=== PATIENT | male | born 1970 | race Asian ===

== ENCOUNTER 2023-09-27 02:25 | Emergency (ER) | payer OTHER, SELFPAY ==
[2023-09-27 02:33] VITALS: BP 145/84
[2023-09-27 03:14] LABS: % Basophils 0.7 % (0-2); % Eosinophils 1.5 % (0-6); % Immature Granulocytes 0.4 % (0-0.5); % Lymphocytes 19.9 % (20.5-51.1); % Neutrophils 69.5 % (42.2-75.2); Absolute Basophils 0.1 10^3/uL (0-0.2); Absolute Eosinophils 0.2 10^3/uL (0-0.7); Absolute Immature Granulocytes 0.1 10^3/uL (0-0.05); Absolute Lymphocytes 2.4 10^3/uL (1.2-3.4); Absolute Monocytes 0.9 10^3/uL (0.1-0.6); Absolute Neutrophils 8.2 10^3/uL (1.4-6.5); Hematocrit 38.4 % (39.0-52.0); Hemoglobin 13.6 g/dL (13.0-18.0); Mean Corp Hgb Conc. 35.4 g/dL (33.0-37.0); Mean Corpuscular Hgb 31.1 pg (27.0-31.0); Mean Corpuscular Volume 87.9 fL (80.0-94.0); Mean Platelet Volume 10.2 fL (7.4-10.4); Nucleated Red Blood Cells % 0 % (-); Platelet Count 249 10^3/uL (130-400); Red Blood Cell Count 4.37 10^6/uL (4.70-6.10); Red Cell Dist. Width 12.9 % (11.5-14.5); White Blood Cell Count 11.8 10^3/uL (4.8-10.8)
[2023-09-27 03:35] LABS: ALT (SGPT) 26 U/L (0-50); AST (SGOT) 35 U/L (17-59); Albumin 4.5 g/dl (3.5-5.0); Alcohol None Detected; Alkaline Phosphatase 113 U/L (38-126); Blood Urea Nitrogen 11 mg/dl (9-20); Calcium 9.5 mg/dl (8.4-10.2); Carbon Dioxide 18 mmol/L (22-30); Chloride 100 mmol/L (98-107); Estimated Creatinine Clearance > 125 ml/min; Glucose 218 mg/dl (70-99); Potassium 4.1 mmol/L (3.5-5.1); Sodium 130 mmol/L (135-145); Total Bilirubin 0.9 mg/dl (0.2-1.3); Total Protein 7.6 g/dl (6.3-8.2); eGFR > 60.00
[2023-09-27 05:11] LABS: Amphetamines Negative (Negative); Barbiturates Negative (Negative); Benzodiazepines Negative (Negative); Buprenorphine Negative (Negative); Cocaine Negative (Negative); Marijuana Negative (Negative); Methadone Negative (Negative); Methamphetamines Negative (Negative); Opiates Negative (Negative); Phencyclidine Negative (Negative); Tricyclic Antidepressants Negative (Negative)
--- NOTE | 2023-09-27 05:44 | ED.GENMED ---
History of Present Illness
General
Chief Complaint: Crisis Evaluation
Time Seen by Provider: 09/27/23 02:35
Travel History
Have you had any contact with someone who has COVID-19?: No
Do you have any symptoms of coronavirus? Fever > 100 degrees, chills, cough, shortness of breath, sore throat, loss of taste or smell, muscle aches, or headache?: No
Past History
Past History
ED Past Medical History: HTN, Hypercholesterolemia, NIDDM, Psychiatric (Anxiety, depression) and Other (Neuropathy)
ED Past Surgical History: None
Social History
Tobacco: Smoker
Alcohol: Daily (Vodka 1 bottle)
Personal:
Living: alone
Course
Orders/Labs/Results
Orders:
Orders
09/27/23 02:37
Electrocardiogram (*1) Urgent
Reason for Study: Palpitations
EKG- Treatment ONCE
09/27/23 02:45
Alcohol Urgent
Complete Blood Count/With Diff Urgent
Comprehensive Metabolic Panel Urgent
09/27/23 03:55
Crisis Consult Urgent
Reason for Consult: Agitation, depression
09/27/23 04:23
Restraints - Violent As Directed
Restraint Type-: Locked-4 point/4 rails
Apply From (date): 09/27/23
Apply from (time): 02:25
Remove (date): 09/27/23
Remove (time): 06:25
09/27/23 04:52
Urine Drug Abuse Screen Urgent
Date Specimen was Collected: 09/27/23
Time Specimen was Collected: 04:51
Abnormal Lab Results
09/27/23
02:45
WBC 11.8 H 10^3/uL
(4.8-10.8)
RBC 4.37 L 10^6/uL
(4.70-6.10)
Hct 38.4 L %
(39.0-52.0)
MCH 31.1 H pg
(27.0-31.0)
Abs Immat Gran (auto) 0.1 H 10^3/uL
(0-0.05)
Absolute Neuts (auto) 8.2 H 10^3/uL
(1.4-6.5)
Absolute Monos (auto) 0.9 H 10^3/uL
(0.1-0.6)
Lymphocytes % 19.9 L %
(20.5-51.1)
Sodium 130 L mmol/L
(135-145)
Carbon Dioxide 18 L mmol/L
(22-30)
Glucose 218 H mg/dl
(70-99)
09/27/23 02:45
09/27/23 02:45
Vital Signs
Initial and Last Documented VS:
Initial Vital Signs
Temp Pulse Resp BP Pulse Ox
97.6 F 117 24 145/84 99
09/27/23 02:33 09/27/23 02:33 09/27/23 02:33 09/27/23 02:33 09/27/23 02:33
Last Documented Vital Signs
Temp Pulse Resp BP Pulse Ox
97.6 F 117 24 145/84 99
09/27/23 02:33 09/27/23 02:33 09/27/23 02:33 09/27/23 02:33 09/27/23 02:33
ED Attending Note
-
Portions of this chart may have been created with voice recognition software.� Occasional wrong word or��sound alike� substitutions may have occurred due to the inherent limitations of voice recognition software.
Discharge Plan
Departure
Referrals:
UNKNOWN - PT DOES,NOT KNOW [Family Provider] -
Interventions
Interventions:
*Risk Screen - Suicide Last Done: 09/27/23 02:33
*General Assessment Last Done: 09/27/23 02:33
*Neglect/Abuse Screening Last Done: 09/27/23 02:33
*ED COVID-19 Vaccine History Last Done: 09/27/23 06:28
--- NOTE | 2023-09-27 06:36 | ED.GENMED ---
History of Present Illness
General
Chief Complaint: Crisis Evaluation
Source: patient and police
Exam Limitations: clinical condition (Patient is quite agitated, anxious, exhibiting pressured speech with flight of ideas)
Time Seen by Provider: 09/27/23 02:30
Nursing documentation reviewed up to this point in time: agreed with
Travel History
Have you had any contact with someone who has COVID-19?: No
Do you have any symptoms of coronavirus? Fever > 100 degrees, chills, cough, shortness of breath, sore throat, loss of taste or smell, muscle aches, or headache?: No
History of Present Illness
History of Present Illness:
This is a 53-year-old gentleman who has history of hypertension, hyperlipidemia, zgn-kswghac-sazlxirhj diabetes, anxiety/depression as well as prior history of alcohol abuse. He is , currently resides locally, renting a room.
He admits to significant, chronic financial burdens, unable to afford his medications. He admits to loneliness, voicing sadness that his daughter refuses to speak to him.
He denies recent alcohol use, adamantly denies drug use.
He is brought to the ED by police after being found at a local convenience store, quite agitated, anxious and questionably attempting to walk out of the store with food and snacks without purchasing.
Patient states he has lost his will to live and was on his way to the hospital when he stopped at a convenience store.
He is quite anxious, agitated exhibiting pressured speech with tangential and scattered thought processes.
Initially refusing to enter the ED but then agreeable to do so but noted to have periods of explosiveness and aggression requiring additional 4 point leather restraints for staff and patient's safety.
With repeated verbal cueing he is able to be calmed and somewhat able to focus but thoughts remained scattered and boisterous.
Patient is prescribed propranolol, naltrexone, metformin. It is unclear if he has been taking any of these medications.
He fears that he is going to but also voices wish.
Ultimately however he is agreeable to stay in the ED, requesting help.
Past History
Past History
ED Past Medical History: HTN, Hypercholesterolemia, NIDDM, Psychiatric (Anxiety, depression) and Other (Neuropathy)
ED Past Surgical History: None
Social History
Tobacco: Smoker
Alcohol: Occasional (Vodka 1 bottle)
Drug: None
Personal:
Living: alone
Employment: Employed
Family History
Family History: Other (Unable to obtain)
Phy Exam
Physical Exam
Physical Exam:
GENERAL: 53-year-old male appears somewhat older than stated age. He is awake and alert, quite anxious, agitated, boisterous. I question very mild odor of alcohol to the patient's breath.
EYE: pupils equal and reactive. anicteric. The head is normocephalic, atraumatic.
NECK: Supple, nontender, no meningismus, no significant adenopathy.
ENT: oral mucosa is moist. No rhinorrhea.
CARDIAC: Regular rate and rhythm. no murmur.
LUNGS: Clear breath sounds bilaterally, no acute respiratory distress, no wheezes/rales/rhonchi
ABDOMEN: Rotund, soft, nondistended, without focal tenderness, normoactive BS.
NEUROLOGICAL: Alert and oriented x3, no focal neuro deficits. Gait is steady.
SKIN: Warm and dry, normal color, skin intact. No rash.
MUSCULOSKELETAL: No C/C/E. peripheral pulses are full and equal b/l. No palpable tenderness.
PSYCH: Significantly anxious, agitated exhibiting pressured speech, tangential and scattered thought processes. Admits to significant ongoing financial stressors, loneliness and concerned that he is going to .
Course
Orders/Labs/Results
Orders:
Orders
09/27/23 02:37
Electrocardiogram (*1) Urgent
Reason for Study: Palpitations
EKG- Treatment ONCE
09/27/23 02:45
Alcohol Urgent
Complete Blood Count/With Diff Urgent
Comprehensive Metabolic Panel Urgent
09/27/23 03:55
Crisis Consult Urgent
Reason for Consult: Agitation, depression
09/27/23 04:23
Restraints - Violent As Directed
Restraint Type-: Locked-4 point/4 rails
Apply From (date): 09/27/23
Apply from (time): 02:25
Remove (date): 09/27/23
Remove (time): 06:25
09/27/23 04:52
Urine Drug Abuse Screen Urgent
Date Specimen was Collected: 09/27/23
Time Specimen was Collected: 04:51
09/27/23 07:37
Haloperidol Lactate [Haldol] 5 mg IM NOW STA
Lorazepam [Ativan] 1 mg IM NOW STA
Abnormal Lab Results
09/27/23
02:45
WBC 11.8 H 10^3/uL
(4.8-10.8)
RBC 4.37 L 10^6/uL
(4.70-6.10)
Hct 38.4 L %
(39.0-52.0)
MCH 31.1 H pg
(27.0-31.0)
Abs Immat Gran (auto) 0.1 H 10^3/uL
(0-0.05)
Absolute Neuts (auto) 8.2 H 10^3/uL
(1.4-6.5)
Absolute Monos (auto) 0.9 H 10^3/uL
(0.1-0.6)
Lymphocytes % 19.9 L %
(20.5-51.1)
Sodium 130 L mmol/L
(135-145)
Carbon Dioxide 18 L mmol/L
(22-30)
Glucose 218 H mg/dl
(70-99)
09/27/23 02:45
09/27/23 02:45
Vital Signs
Initial and Last Documented VS:
Initial Vital Signs
Temp Pulse Resp BP Pulse Ox
97.6 F 117 24 145/84 99
09/27/23 02:33 09/27/23 02:33 09/27/23 02:33 09/27/23 02:33 09/27/23 02:33
Last Documented Vital Signs
Temp Pulse Resp BP Pulse Ox
97.6 F 117 24 145/84 99
09/27/23 02:33 09/27/23 02:33 09/27/23 02:33 09/27/23 02:33 09/27/23 02:33
MDM/Problems Addressed
Differential Diagnosis Includes:
Patient presents via police due to acute agitation, intermittent aggressive/explosiveness.
Initially placed in 4-point restraints for patient and staff safety. With
With persistent verbal cueing patient is now calmed and has not required sedating medications.
Concern for acute intoxication, drug use, acute john.
Patient has history of hypertension, meb-yeqkklf-mdkpfuxde diabetes.
Admits that he has had difficulty obtaining medications. Concern for poorly controlled diabetes, poorly controlled hypertension.
Patient agreeable to laboratory studies, vital signs, EKG.
He is agreeable to crisis evaluation and if medically cleared agreeable to psychiatric hospitalization.
Police have filed a backup 302 if needed.
Chronic conditions affecting care: DM, HTN, Psychiatric illness and Other (Alcohol abuse)
*Pulse Oximetry
Patient hypoxic: no
*EKG
Interpreted by ED Provider?: Yes
Interpretation: normal
Comparison EKG: no comparison EKG present
Rate: normal
Rhythm: sinus
[place]ail: normal axis
Interval: normal interval
QRS Pattern: normal QRS
Ischemia: no ischemia
*Critical Care Note
Total Time (30-74mins, 75-104mins- exclusive of procedures): Not Applicable
Update Note
Update Note:
Restraints have been successfully removed.
Patient remains cooperative.
Vital signs are stable.
Labs show moderately elevated glucose of 218 without evidence of acidosis. Mild hyponatremia of 130.
Alcohol is negative, UDS is negative.
Patient remains agreeable to inpatient psychiatric treatment.
[facility] working on hospital acceptance and transfer.
09/27/2023 0738 AM
Patient has become aggressively more agitated, verbally threatening, pacing about exam room.
He continues to talk incessantly with pressured speech, flight of ideas.
He is threatening to leave the hospital, requesting to smoke a cigarette. I have attempted to appease him with a nicotine patch versus gum. Briefly excepted the gum but continues to attempt to leave exam room to smoke a cigarette, threatening to
juliet everyone.
Will medicate with IM Haldol and Ativan.
Patient is clearly a danger to himself.
302 filled out by police will be filed by [facility] and will consult psychiatrist for evaluation this a.m.
ED Attending Note
-
Portions of this chart may have been created with voice recognition software.� Occasional wrong word or��sound alike� substitutions may have occurred due to the inherent limitations of voice recognition software.
Discharge Plan
Departure
Patient Disposition: Psych Facility
Date of Disposition: 09/27/23
Time of Disposition: 07:25
Patient with high blood pressure during this ER visit?: No
Condition: Good
Discharge Problem:
Excited delirium, Acute john, Medical clearance for psychiatric admission
Referrals:
UNKNOWN - PT DOES,NOT KNOW [Family Provider] -
Interventions
Interventions:
*Risk Screen - Suicide Last Done: 09/27/23 02:33
*General Assessment Last Done: 09/27/23 02:33
*Neglect/Abuse Screening Last Done: 09/27/23 02:33
*ED COVID-19 Vaccine History Last Done: 09/27/23 06:28
ED-Psychological Assessment Last Done: 09/27/23 02:30
[2023-09-27] MEDS: ATIVAN 1 MG IM (07:46)
[2023-09-27] MEDS: HALDOL 5 MG IM (07:46)
[2023-09-27 08:00] VITALS: BP 153/104
[2023-09-27 08:11] LABS: Glucose - Point of Care 135 mg/dl (70-99)
[2023-09-27 08:37] VITALS: BP 112/72
--- NOTE | 2023-09-27 10:45 | W.PN.UPDATE ---
Update Note
Progress Note Update
Pt seen for 302 exam. Pt resting on gurney, mildly sedated/slowed after given Haldol and Ativan due to agitation and verbally threatening earlier. Pt admits to mind racing 'a million miles an hour, can't turn it off.' Pt states he drove from [place],
not sure why, talked about a 'casey's daughter in [place]...' Pt pushing to be released, states he has an appointment 'somewhere' with a psychiatrist. Pt states he was moving in with his mother in [place], since his father in July at age
88. Pt being taken out of restraints, calm after receiving Haldol and Ativan IM, no EPS evident. Pt protesting/denying need to be here, insisting on talking to someone. Insight and judgement appear impaired.
Imp: Manic state, disorganized/pressured/aggressive earlier; pt now on 302
Rec: Inpatient psych placement on 302
== END 2023-09-27 14:25 ==
LOC: EMR 02:25
PROVIDERS: CONSULT PHYSICIAN Psychiatry & Neurology Psychiatry; EMERGENCY PHYSICIAN Emergency Medicine
DX: R41.0 Disorientation, unspecified (principal); F30.9 Manic episode, unspecified; R45.1 Restlessness and agitation; Z02.79 Encounter for issue of other medical certificate; R45.89 Other symptoms and signs involving emotional state; I10 Essential (primary) hypertension; E11.40 Type 2 diabetes mellitus with diabetic neuropathy, unspecified; E78.00 Pure hypercholesterolemia, unspecified; F17.210 Nicotine dependence, cigarettes, uncomplicated; F32.A Depression, unspecified; F41.9 Anxiety disorder, unspecified; Z59.6 Low income; F10.11 Alcohol abuse, in remission; Z91.141 Patient's other noncompliance with medication regimen due to financial hardship; Z79.84 Long term (current) use of oral hypoglycemic drugs
CPT/HCPCS: 99285; 96372 ×2; 80053; 80306; 82077; 82962; 85025; 93005